=== PATIENT | female | born 1940 | race Caucasian/White ===

== ENCOUNTER → 2016-07-06 | Outpatient (CLI) | payer MEDICARE | LOC: MC.RAD 10:51 | DX: Z12.31 Encounter for screening mammogram for malignant neoplasm of breast (principal) ==

== ENCOUNTER 2017-04-09 16:20 | Emergency (ER) | payer MEDICARE ==
[~2017-04-09] VITALS: Ht 160 cm; Wt 48.6 kg
[2017-04-09 16:21] VITALS: TEMP 97.8
[2017-04-09 19:25] VITALS: BP 126/78; PULSE 70
[2017-04-09] MEDS ORDERED: SYNTHROID0.05 MG/TA PO (19:31)
[2017-04-09] MEDS ORDERED: ALTACE 5MG5 MG PO (19:31)
[2017-04-09] MEDS ORDERED: LIPITOR20 MG PO (19:31)
== END 2017-04-09 19:35 | disposition home or self-care (01) ==
LOC: COL.ER 16:20
DX: S52.502A Unspecified fracture of the lower end of left radius, initial encounter for closed fracture (principal); I10 Essential (primary) hypertension; E03.9 Hypothyroidism, unspecified; E78.5 Hyperlipidemia, unspecified; W00.0XXA Fall on same level due to ice and snow, initial encounter
CPT/HCPCS: J1885; J2405; J2704; J3010; J7030

== ENCOUNTER 2017-08-03 13:00 | Outpatient (RCR) | payer MEDICARE ==
[~2017-08-03 13:00] MED LIST: ALTACE 5MG5 MG PO; LIPITOR20 MG PO; SYNTHROID0.05 MG/TA PO
== END 2017-08-10 13:44 | disposition home or self-care (01) ==
LOC: MKS.ESL.OT 13:00
DX: S52.532D Colles' fracture of left radius, subsequent encounter for closed fracture with routine healing (principal); S52.612D Displaced fracture of left ulna styloid process, subsequent encounter for closed fracture with routine healing
CPT/HCPCS: G8984-GO; G8985-GO; G8986-GO

== ENCOUNTER 2017-12-13 20:18 | Emergency (ER) | payer MEDICARE, OTHER ==
[~2017-12-13] VITALS: Ht 162.6 cm; Wt 48.2 kg
[2017-12-13 20:22] VITALS: BP 132/63; PULSE 81; TEMP 98.4
[2017-12-13] MEDS ORDERED: MEDROL 4MG DOSPA4 MG PO (21:57)
== END 2017-12-13 21:58 | disposition home or self-care (01) ==
LOC: COL.ER 20:18
DX: S92.351A Displaced fracture of fifth metatarsal bone, right foot, initial encounter for closed fracture (principal); I10 Essential (primary) hypertension; E78.5 Hyperlipidemia, unspecified; E03.9 Hypothyroidism, unspecified; X50.1XXA Overexertion from prolonged static or awkward postures, initial encounter; Y93.41 Activity, dancing; Y99.0 Civilian activity done for income or pay

== ENCOUNTER → 2017-12-21 | Outpatient (CLI) | payer MEDICARE ==
[~2017-12-21] VITALS: Ht 162.6 cm; Wt 48.9 kg
[~2017-12-21] MED LIST changes: +ASPIRIN E.C. 8181 MG PO; +LEVOXYL0.05 MG PO; +MEDROL 4MG DOSPA4 MG PO; +VITAMIN D 50,1.25 MG PO
[2017-12-21 13:36] VITALS: BP 146/74; PULSE 80
[2017-12-21 14:30] VITALS: BP 142/69; PULSE 77
== END ==
LOC: COL.RAD 12:45
DX: M51.26 Other intervertebral disc displacement, lumbar region (principal)
CPT/HCPCS: J3301; Q9965

== ENCOUNTER → 2018-02-19 | Outpatient (CLI) | payer MEDICARE ==
[~2018-02-19] VITALS: Ht 162.6 cm; Wt 50.0 kg
[2018-02-19 12:37] VITALS: BP 142/80; PULSE 84
[2018-02-19 13:45] VITALS: BP 127/59; PULSE 68
[2018-02-19 14:00] VITALS: BP 121/52; PULSE 66
[2018-02-19 14:15] VITALS: BP 129/56; PULSE 66
== END ==
LOC: COL.RAD 09:00
DX: M51.26 Other intervertebral disc displacement, lumbar region (principal)
CPT/HCPCS: J3301

== ENCOUNTER → 2018-08-13 | Outpatient (CLI) | payer MEDICARE | LOC: MC.RAD 07:33 | DX: Z12.31 Encounter for screening mammogram for malignant neoplasm of breast (principal) ==

== ENCOUNTER → 2018-12-13 | Outpatient (CLI) | payer MEDICARE ==
[~2018-12-13] VITALS: Ht 162.6 cm; Wt 48.7 kg
[2018-12-13 09:46] VITALS: BP 141/76; PULSE 82
[2018-12-13 10:55] VITALS: BP 144/71; PULSE 67
== END ==
LOC: COL.RAD 12-05 13:00
DX: M51.16 Intervertebral disc disorders with radiculopathy, lumbar region (principal)
CPT/HCPCS: J3301

== ENCOUNTER 2019-01-03 12:55 | Outpatient (CLI) | payer MEDICARE ==
[~2019-01-03] VITALS: Ht 162.6 cm; Wt 49.0 kg
[2019-01-03 13:11] VITALS: BP 128/73; PULSE 69; TEMP 97.4
== END 2019-01-03 14:09 | disposition home or self-care (01) ==
LOC: EUO 12:55
DX: M81.0 Age-related osteoporosis without current pathological fracture (principal)
CPT/HCPCS: J0897

== ENCOUNTER 2019-07-07 14:54 | Outpatient (CLI) | payer MEDICARE ==
[~2019-07-07] VITALS: Ht 162.6 cm; Wt 48.6 kg
== END 2019-07-07 15:33 | disposition home or self-care (01) ==
LOC: EUO 14:54
DX: M81.0 Age-related osteoporosis without current pathological fracture (principal)
CPT/HCPCS: J0897

== ENCOUNTER → 2019-10-20 | Outpatient (CLI) | payer MEDICARE | LOC: MC.RAD 09:51 | DX: Z12.31 Encounter for screening mammogram for malignant neoplasm of breast (principal) ==

== ENCOUNTER 2020-02-13 15:57 | Outpatient (CLI) | payer MEDICARE ==
[~2020-02-13] VITALS: Ht 162.6 cm; Wt 50.3 kg
[2020-02-13] MEDS ORDERED: SYNTHROID0.05 MG/TA PO (16:44)
[2020-02-13] MEDS ORDERED: DAILY MULTIPLE1 T19 PO (16:46)
[2020-02-13] MEDS ORDERED: HAIRSKINNAILS PO (16:47)
[2020-02-13 16:53] VITALS: BP 135/54; PULSE 70; TEMP 97.9
== END 2020-02-13 18:05 | disposition home or self-care (01) ==
LOC: EUO 15:57
DX: M81.0 Age-related osteoporosis without current pathological fracture (principal)
CPT/HCPCS: J0897

== ENCOUNTER → 2020-04-06 | Outpatient (CLI) | payer MEDICARE ==
[~2020-04-06] VITALS: Ht 162.6 cm; Wt 48.5 kg
[~2020-04-06] MED LIST changes: +DAILY MULTIPLE1 T19 PO; +HAIRSKINNAILS PO
[2020-04-06 08:58] VITALS: BP 160/72; PULSE 81
[2020-04-06 10:30] VITALS: BP 125/46; PULSE 73
== END ==
LOC: COL.RAD 08:45
DX: M48.061 Spinal stenosis, lumbar region without neurogenic claudication (principal); M51.26 Other intervertebral disc displacement, lumbar region
CPT/HCPCS: J3301

== ENCOUNTER 2020-07-02 12:45 | Outpatient (RCR) | payer MEDICARE | END 2020-08-24 | disposition still patient (30) | LOC: MKS.ESL.PT | DX: M54.16 Radiculopathy, lumbar region (principal) ==

== ENCOUNTER 2020-08-16 13:28 | Outpatient (CLI) | payer MEDICARE ==
[~2020-08-16] VITALS: Ht 162.6 cm; Wt 48.5 kg
[2020-08-16 14:04] VITALS: BP 116/56; PULSE 80; TEMP 97.5
== END 2020-08-16 14:16 | disposition home or self-care (01) ==
LOC: EUO 13:28
DX: M81.0 Age-related osteoporosis without current pathological fracture (principal)
CPT/HCPCS: J0897

== ENCOUNTER 2021-02-21 14:43 | Outpatient (CLI) | payer MEDICARE ==
[~2021-02-21] VITALS: Ht 162.6 cm; Wt 50.0 kg
[2021-02-21 15:08] VITALS: BP 127/77; PULSE 61; TEMP 98.4
== END 2021-02-21 15:10 ==
LOC: EUO 14:43
DX: M81.0 Age-related osteoporosis without current pathological fracture (principal)
CPT/HCPCS: J0897

== ENCOUNTER 2021-07-15 09:18 | Outpatient (RCR) | payer MEDICARE ==
[2021-08-01] MEDS ORDERED: ALTACE 5MG5 MG PO (07:57)
== END 2021-07-23 | disposition home or self-care (01) ==
LOC: MKS.ESL.PT
DX: M54.50 Low back pain, unspecified (principal)
CPT/HCPCS: G0283-GP

== ENCOUNTER → 2021-08-03 | Outpatient (CLI) | payer MEDICARE ==
[~2021-08-03] VITALS: Ht 162.6 cm; Wt 48.2 kg
[2021-08-03 07:21] VITALS: BP 152/82; PULSE 87; TEMP 98.2
[2021-08-03 08:25] VITALS: BP 146/75; PULSE 70
== END ==
LOC: COL.RAD 07:00
DX: M51.26 Other intervertebral disc displacement, lumbar region (principal)
CPT/HCPCS: J3301

== ENCOUNTER 2021-09-06 09:01 | Outpatient (RCR) | payer MEDICARE | END 2021-09-06 09:02 | disposition home or self-care (01) | LOC: MKS.ESL.PT 09:01 | DX: M54.50 Low back pain, unspecified (principal) ==

== ENCOUNTER 2021-11-08 08:55 | Outpatient (CLI) | payer MEDICARE ==
[~2021-11-08] VITALS: Ht 162.6 cm; Wt 49.8 kg
[2021-11-08 09:30] VITALS: BP 125/57; PULSE 78; TEMP 97.8
== END 2021-11-08 09:45 | disposition home or self-care (01) ==
LOC: EUO 08:55
DX: M81.0 Age-related osteoporosis without current pathological fracture (principal)
CPT/HCPCS: J0897

== ENCOUNTER → 2021-11-22 | Outpatient (CLI) | payer MEDICARE ==
[~2021-11-22] VITALS: Ht 162.6 cm; Wt 48.7 kg
[~2021-11-22] MED LIST changes: +ONE-A-DAY ESSE1 EACH PO
[2021-11-22 13:22] VITALS: BP 133/66; PULSE 82
[2021-11-22 15:15] VITALS: BP 134/75; PULSE 67
== END ==
LOC: COL.RAD 13:00
DX: M51.9 Unspecified thoracic, thoracolumbar and lumbosacral intervertebral disc disorder (principal)
CPT/HCPCS: J3301

== ENCOUNTER → 2022-01-26 | Outpatient (CLI) | payer MEDICARE | LOC: MC.RAD 11:26 | DX: Z12.31 Encounter for screening mammogram for malignant neoplasm of breast (principal) ==

== ENCOUNTER → 2022-06-29 | Outpatient (CLI) | payer MEDICARE ==
[~2022-06-29] VITALS: Ht 162.6 cm; Wt 48.9 kg
[~2022-06-29] MED LIST changes: +PROLIA60 MG/ML SQ
[2022-06-29 07:12] VITALS: BP 132/83; PULSE 75; TEMP 97.5
[2022-06-29 07:58] VITALS: BP 108/72; PULSE 75
== END ==
LOC: COL.RAD 07:00
DX: M51.9 Unspecified thoracic, thoracolumbar and lumbosacral intervertebral disc disorder (principal)
CPT/HCPCS: J3301

== ENCOUNTER 2022-07-21 14:20 | Outpatient (RCR) | payer MEDICARE | END 2022-07-23 | disposition home or self-care (01) | LOC: MKS.ESL.PT | DX: S86.911D Strain of unspecified muscle(s) and tendon(s) at lower leg level, right leg, subsequent encounter (principal); X58.XXXD Exposure to other specified factors, subsequent encounter ==

== ENCOUNTER 2023-03-14 10:00 | Outpatient (RCR) | payer MEDICARE, OTHER | END 2023-03-25 | disposition home or self-care (01) | LOC: WSPT | DX: S93.402D Sprain of unspecified ligament of left ankle, subsequent encounter (principal); X58.XXXD Exposure to other specified factors, subsequent encounter ==

== ENCOUNTER 2023-05-30 09:46 | Outpatient (CLI) | payer MEDICARE, OTHER ==
[~2023-05-30] VITALS: Ht 160 cm; Wt 50.7 kg
[2023-05-30] MEDS ORDERED: Denosumab 60 MG/ML SYRINGE SQ ONE (10:00)
[2023-05-30 10:03] VITALS: BP 153/67; PULSE 72; TEMP 97.6
== END 2023-05-30 10:51 ==
LOC: EUO 09:46
DX: M81.0 Age-related osteoporosis without current pathological fracture (principal)
CPT/HCPCS: J0897

== ENCOUNTER 2023-12-03 12:52 | Outpatient (CLI) | payer MEDICARE ==
[~2023-12-03] VITALS: Ht 160 cm; Wt 49.7 kg
[2023-12-03] MEDS ORDERED: Denosumab 60 MG/ML SYRINGE SQ ONE (13:15)
[2023-12-03 13:17] VITALS: BP 139/65; PULSE 84; TEMP 97.6
== END 2023-12-03 13:25 ==
LOC: EUO 12:52
DX: M81.0 Age-related osteoporosis without current pathological fracture (principal)
CPT/HCPCS: J0897